=== PATIENT | female | born 1980 | race Hispanic/Latino ===

== ENCOUNTER 2020-02-19 06:15 | Day surgery (SDC) | payer OTHER ==
[2020-02-17 14:41] LABS: BASOPHILS % (AUTO) 0.3 % (0.0-5.0); EOSINOPHILS % (AUTO) 0.1 % (0.0-8.0); HEMATOCRIT 37.8 % (42-54); LYMPHOCYTES % (AUTO) 15.4 % (21.0-51.0); MEAN CORPUSCULAR HEMOGLOBIN 27.6 pg (27.0-33.0); MEAN CORPUSCULAR HGB CONC 31.2 g/dL (32.0-36.0); MEAN CORPUSCULAR VOLUME 88.5 fL (79-99); MONOCYTES % (AUTO) 6.9 % (3.0-13.0); PLATELET COUNT (AUTO) 312 K/uL (130-400); RED BLOOD CELL COUNT(AUTO) 4.27 MIL/uL (4.50-6.20); RED CELL DISTRIBUTION WIDTH 13.2 % (11.0-15.5); WHITE BLOOD COUNT (AUTO) 9.3 K/uL (4.8-10.8)
[2020-02-17 14:45] LABS: CREATININE 0.8 mg/dL (0.5-1.5)
[2020-02-18 08:54] VITALS: BP 136/79
[2020-02-19] VITALS (17 sets, daily range): BP systolic 125–142; BP diastolic 74–93
[~2020-02-19] VITALS: Ht 170.2 cm; Wt 73.9 kg
[~2020-02-19 06:15] MED LIST: CEFAZOLIN SODIUM 1 GM VIAL IVP SCH; ESCI10TA PO; TRAM50TA4 PO
[2020-02-19] MEDS: LACTATED RINGERS 1000ML 1,000 ML IV SCH (07:17)
[2020-02-19] MEDS ORDERED: DEXAMETHASONE SOD PHOSPHATE 10MG/ML 1ML VIAL ONE (07:31)
[2020-02-19] MEDS ORDERED: SUCCINYLCHOLINE 200MG/10ML SYR ONE (07:31)
[2020-02-19] MEDS ORDERED: LIDOCAINE PF 2% 5ML ABBOJECT ONE (07:31)
[2020-02-19] MEDS ORDERED: MIDAZOLAM HCL 1 MG/ML 2ML VIAL ONE (07:32)
[2020-02-19] MEDS ORDERED: FENTANYL CITRATE PF 50 MCG/1 ML 2ML VIAL ONE ×2 (07:32→08:21)
[2020-02-19] MEDS ORDERED: ONDANSETRON HCL 4 MG/2 ML VIAL ONE (07:32)
[2020-02-19] MEDS ORDERED: ROCURONIUM 10MG/1ML SYR 10 MG/ML ML ONE (07:32)
[2020-02-19] MEDS ORDERED: PROPOFOL 10 MG/ML 20ML VIAL IV ONE (07:32)
[2020-02-19] MEDS ORDERED: BUPIVACAINE/EPI/PF 0.5% 30ML VIAL IJ ONE (08:22)
[2020-02-19] MEDS ORDERED: NEOSTIGMINE 5MG/5ML SYR IV ONE (09:26)
[2020-02-19] MEDS ORDERED: GLYCOPYRROLATE 1 MG/5 ML SYRINGE ONE (09:26)
[2020-02-19] MEDS ORDERED: MEPERIDINE-PF 25 MG/ML SYG ONE ×2 (10:00→10:09)
--- NOTE | 2020-02-19 10:50 | NUR ---
POST OP RECEIVED PT AND REPORT FROM KORI ZUÑIGA FROM PACU. PT ORIENTED TO ROOM AND CALL LIGHT. WILL CONTINUE TO MONITOR PT.
--- NOTE | 2020-02-19 11:30 | NUR ---
DISCHARGE SPOUSE GIVEN D/C INSTRUCTIONS AND SCRIPT AND VOICED UNDERSTANDING. PT TAKEN OUT VIA W/C IN NO DISTRESS.
== END 2020-02-19 11:30 | disposition home or self-care (01) ==
LOC: DAH 06:15 → EDSEX 06:15 → DAH 11:30
PROVIDERS: ATTEND Orthopaedic Surgery
DX: S42.021A Displaced fracture of shaft of right clavicle, initial encounter for closed fracture (principal); F32.9 Major depressive disorder, single episode, unspecified; F41.9 Anxiety disorder, unspecified; W01.198A Fall on same level from slipping, tripping and stumbling with subsequent striking against other object, initial encounter; Y93.89 Activity, other specified; Y92.89 Other specified places as the place of occurrence of the external cause; Y99.8 Other external cause status
CPT/HCPCS: 23515; 36415; 73000; 80048; 85025; A4649 ×2; A4930; A6204; A6207; A6223; A6260; C1713 ×3; C1776; J0330; J0690; J1100; J2001; J2175 ×2; J2250; J2405; J2704; J2710; J3010 ×2; J3490 ×2; J7120 ×2